=== PATIENT | female | born 1980 | race African-American/Black ===

== ENCOUNTER 2021-11-24 08:00 | Outpatient (CLI) | payer OTHER, SELFPAY ==
[2021-11-24 08:35] LABS: Anion Gap 6 mmol/L (8-16); Blood Urea Nitrogen 7 mg/dL (7-17); Calcium 8.3 mg/dL (8.4-10.2); Carbon Dioxide 25 mmol/L (22-30); Chloride 105 mmol/L (98-107); Estimated Glomerular Filt Rate > 60; Glucose 247 mg/dL (65-110); Potassium 3.6 mmol/L (3.4-5.0); Sodium 136 mmol/L (137-145)
== END 2021-11-24 08:01 | disposition home or self-care (01) ==
PROVIDERS: Anesthesiology; PCP Nurse Practitioner; Visit Provider Obstetrics & Gynecology
DX: E11.9 Type 2 diabetes mellitus without complications (principal); Z01.818 Encounter for other preprocedural examination
CPT/HCPCS: 36415; 80048

== ENCOUNTER 2021-11-30 01:46 | Day surgery (SDC) | payer OTHER, SELFPAY ==
[2021-11-23 13:35] VITALS: BMI 35.3
--- NOTE | 2021-11-23 14:08 | SUR.PREOP ---
Report to the Outpatient Waiting Room, entrance under the green pavilion located off [facility], at time 800 on date 11/30/21. OR Time: 1000. - You and your visitor will be asked a series of questions to screen for COVID 19 for your protection. - Only one visitor is allowed at this time. - The patient visitor is requested to leave or wait in car when not with patient. - A mask is required within the hospital. Patients may have clear liquids (water, carbonated beverages, clear teas, apple juice) until 3 hours prior to surgery with a maximum of 20 ounces. - No food from midnight until time of surgery - Infants may have breast milk until 4 hours before surgery, infant formula 6 hours prior to surgery. - Children will be allowed to drink immediately following surgery. If applicable, please bring a bottle or sippy cup to assist with drinking. Juice, water, soda, and popsicles are readily available. For infants on formula, please bring formula the day of surgery. Pacifiers are allowed. Take the following medications with a SIP of water the morning of surgery: GABAPENTIN Medications to discontinue per physician STOP ALL VITAMINES AND SUPPLIMENTS 3 DAYS PRIOR TO SURGERY. Date to take last dose 11/27/21. Please no make-up, nail cymro, hairspray, perfume, deodorant, or body powder the day of surgery. No jewelry (including any body piercings) or valuables the day of surgery, leave them at home. Please take a shower or bath the night before, or the morning of, surgery with an antibacterial soap. Wear comfortable, loose fitting clothing. Children are encouraged to wear pajamas. - Jewelry must be removed prior to entering the operating room. Rings and piercings that are not removed may be cut off. - The hospital will not accept responsibility for valuables. - Please leave all valuables, including medications, at home the day of surgery. If you are going home after surgery, a licensed truss driver helper must drive you home. - NO public transportation without another adult. - We recommend that an adult stay with you for 24 hours following discharge. - We also recommend that you do not drive, make important decision, drink alcoholic beverages, or take any drugs that were not prescribed by your health care provider for at least 24 hours after your discharge time. For Pediatric surgeries, we recommend two adults accompany the child home (only one inside the building at this time). Follow any additional instructions given to you from your surgeon. If you or anyone in your household have experienced Covid symptoms in the past week, please notify your surgeon or the nurse liaison at the phone number below for possible testing. Telephone instructions given to HELLEN MADDOX and asked if any additional questions and then verbalized understanding. Patient advised to call surgeon office or pre surgery nurse liaison [phone] if any additional questions.
--- NOTE | 2021-11-29 13:58 | PM.IMHP ---
H&P: HPI History of Present Illness Date/Time: 11/29/21 13:58 Chief Complaint: retained IUD Narrative: Trinh is a 41yo G0, who presented to clinic for Mirena IUD removal. She has missing strings, but US confirmed correct placement. She has decided she wants the IUD removed and she's wanting to have children. She does report HTN, DM and on multiple medications. In office attempt at removal was not tolerated by the patient due to cramping pains. She desires to proceed with HSC IUD removal. [facility] Past Medical History Medical History Diabetes Herpes Hyperlipidemia Hypertension Social History Social History Smoking status: Never smoker Spiritual care concerns: No Meds Home Medications and Allergies Home Medications Medication Instructions Recorded Confirmed Type acyclovir 400 mg tablet 400 mg PO DAILY 09/28/21 11/23/21 History atorvastatin 40 mg tablet 40 mg PO DAILY 09/28/21 11/23/21 History empagliflozin 25 mg tablet 25 mg PO DAILY 09/28/21 11/23/21 History (Jardiance) gabapentin 300 mg capsule 300 mg PO DAILY 09/28/21 11/23/21 History hydrochlorothiazide 25 mg tablet 25 mg PO DAILY 09/28/21 11/23/21 History insulin glargine 100 unit/mL (3 10 unit subcut QPM 09/28/21 11/23/21 History mL) subcutaneous pen (Basaglar KwikPen U-100 Insulin) lamotrigine 25 mg tablet 75 mg PO BID 09/28/21 11/23/21 History loratadine 10 mg tablet 10 mg PO DAILY 09/28/21 11/23/21 History metformin 500 mg tablet 500 mg PO DAILY 09/28/21 11/23/21 History mometasone-formoterol HFA 200 2 puff inhalation BID 09/28/21 11/23/21 History mcg-5 mcg/actuation aerosol inhaler (Dulera) insulin glargine 100 unit/mL (3 70 unit subcut DAILY 11/23/21 11/23/21 History mL) subcutaneous pen (Basaglar KwikPen U-100 Insulin) liraglutide 0.6 mg/0.1 mL (18 mg/3 0.6 mg subcut DAILY 11/23/21 11/23/21 History mL) subcutaneous pen injector (Victoza 2-Humberto) Allergies Allergy/AdvReac Type Severity Reaction Status Date / Time No Known Allergies Allergy Verified 11/23/21 13:39 Exam Const: General: cooperative, comfortable and no acute distress Nutritional Appearance: obese Orientation/consciousness: patient oriented x3 Resp: Effort & Inspection: normal respiratory effort Cardio: Rate: regular rate GI: Inspection: normal to inspection GI Palp: No abdominal tenderness and Yes Soft to palpation : Other: deferred to OR Skin: General skin exam: normal color Extrem: General: normal to inspection Psych: Appearance: grossly normal Affect: normal affect Attitude: cooperative Assessment and Plan Assessment and plan (1) IUD threads lost: Qualifiers: Encounter type: subsequent encounter Qualified Code(s): T83.32XD - Displacement of intrauterine contraceptive device, subsequent encounter Code(s): T83.32XA - Displacement of intrauterine contraceptive device, initial encounter Status: Acute (2) Retained intrauterine contraceptive device (IUD): Code(s): T83.39XA - Other mechanical complication of intrauterine contraceptive device, initial encounter Status: Acute Plan - pt unable to tolerate cramping associated with attempt at IUD removal in office when strings missing - needs HSC IUD removal in OR - Risks and benefits explained in detail
--- NOTE | 2021-11-30 07:05 | WPDHPUPDATE1 ---
History and Physical Update Update Date/Time: 11/30/21 07:05 History and Physical has been reviewed, including an updated exam of the patient. There are NO changes in the patient's condition. Risks, benefits, and alternatives have been discussed and questions answered. Patient agrees to proceed with procedure.
[2021-11-30 08:27] VITALS: BP 121/75; PULSE 79; RESP 20; TEMP 36.3; O2SAT 100
[2021-11-30] MEDS: ACETAMINOPHEN 500 MG TABLET 1000 MG PO (08:39)
[2021-11-30] MEDS: LACTATED RINGERS 1,000 ML 30 ML IV CONT (08:40)
[2021-11-30 08:48] LABS: Glucose Point of Care 156 mg/dl (65-105)
--- NOTE | 2021-11-30 08:54 | P.PNAN_ITS ---
Anes - Initial Pre Proc Eval Procedure: Operation Date: 11/30/21 10:00 Proposed Procedures p Hysteroscopy, Intra Uterine Device Removal - Jeanna Ingram MD Date/Time: 11/30/21 08:54 Surgeon: Jeanna Ingram MD Pre Op Diagnosis: retained IUD Patient Data Age: 41 Gender: F Height: 1.57 m Weight: 87.54 kg Allergies Allergy/AdvReac Type Severity Reaction Status Date / Time No Known Allergies Allergy Verified 11/30/21 08:29 Home Medications Medication Instructions Recorded Confirmed Type acyclovir 400 mg tablet 400 mg PO DAILY 09/28/21 11/30/21 History atorvastatin 40 mg tablet 40 mg PO DAILY 09/28/21 11/30/21 History empagliflozin 25 mg tablet 25 mg PO DAILY 09/28/21 11/30/21 History (Jardiance) gabapentin 300 mg capsule 300 mg PO DAILY 09/28/21 11/30/21 History hydrochlorothiazide 25 mg tablet 25 mg PO DAILY 09/28/21 11/30/21 History insulin glargine 100 unit/mL (3 10 unit subcut QPM 09/28/21 11/30/21 History mL) subcutaneous pen (Basaglar KwikPen U-100 Insulin) lamotrigine 25 mg tablet 75 mg PO BID 09/28/21 11/30/21 History loratadine 10 mg tablet 10 mg PO DAILY 09/28/21 11/30/21 History metformin 500 mg tablet 500 mg PO DAILY 09/28/21 11/30/21 History mometasone-formoterol HFA 200 2 puff inhalation BID 09/28/21 11/30/21 History mcg-5 mcg/actuation aerosol inhaler (Dulera) insulin glargine 100 unit/mL (3 70 unit subcut DAILY 11/23/21 11/30/21 History mL) subcutaneous pen (Basaglar KwikPen U-100 Insulin) liraglutide 0.6 mg/0.1 mL (18 mg/3 0.6 mg subcut DAILY 11/23/21 11/30/21 History mL) subcutaneous pen injector (Victoza 2-Humberto) Laboratory Tests 11/30/21 08:45 POC Capillary Glucose 156 mg/dl H mg/dl (65-105) Patient hx anesthesia problems: none Family hx anesthesia problems: none Results Review: All pre-operative results and documents have been reviewed as part of the pre- operative evaluation. [facility] Past Medical History Medical History Diabetes Herpes Hyperlipidemia Hypertension Social History Social History Smoking status: Never smoker Living arrangements: with family Spiritual care concerns: No Anes - Eval Final PreProcedure Day of Procedure 11/30/21 08:54 Patient weight: obese Heart: regular rate and rhythm Lungs: clear to auscultation Airway: Mallampati scale class II Neurological: alert and oriented Last oral intake: >/= 8 hours ASA classification: III Anesthesia type and monitoring: general GIVS and standard monitoring Results Review: All pre-operative results and documents have been reviewed as part of the pre- operative evaluation. Informed Consent: The patient's anesthetic plan and its attendant risks and benefits were discussed with the patient/family/POA. Questions were solicited and answers provided to the satisfaction of the patient/family/POA.
--- NOTE | 2021-11-30 09:28 | W.PM.PROC2 ---
Procedure Note - Detailed Date of Procedure 11/30/21 Pre-op Diagnosis retained IUD Post-op Diagnosis Same Procedure Performed Hysteroscopy, IUD removal Surgeon Jeanna Ingram MD Anesthesia MAC Indications Trinh is a 41yo G0, who attempted IUD removal in office; the IUD strings were missing. She was unable to tolerate the cramping pain therefore we proceeded with hysteroscopic IUD removal in the OR. Findings Uterus 7cm; IUD and strings within the uterine cavity; stenotic os. IUD removed in whole without issue. Good hemostasis at end of case. Description of Procedure Trinh was taken to the operating room where she was placed under sedation without complications. She was then prepped and draped in the usual sterile fashion in the dorsal lithotomy position with her legs in low Yunior stirrups. A time-out was performed and no preoperative antibiotics were indicated. A bivalve speculum was placed in the vagina where the cervix was easily identified and no IUD strings were noted. The anterior lip of the cervix was grasped with single-tooth tenaculum. The cervix was found to be stenotic but easily dilated. The hysteroscope was advanced into the uterine cavity where the IUD and strings were noted to be within the uterine cavity. The IUD was grasped with hysteroscopic alligator forceps however when trying to move the IUD, the grasp was weak and the IUD was accidentally released. Using polyp forceps, the IUD was grasped and removed in whole without complications. The hysteroscope was once again advanced into the uterine cavity where the bilateral tubal ostia were visualized as well as normal lining. All instruments were removed. Good hemostasis was noted. Sponge, lap, instrument, and needle counts were correct at the end the procedure. Patient was awoken from sedation and taken recovery in stable condition with plans of same day discharge home. Estimated Blood Loss 3 Pathology None sent Complications No immediate complications Condition Stable Disposition Same day [facility] Billing Surgery - Charge Forward: Surgery Billing
[2021-11-30 09:32] VITALS: BP 117/70; PULSE 90; RESP 14; O2SAT 100
[2021-11-30 09:44] LABS: Glucose Point of Care 136 mg/dl (65-105)
[2021-11-30] MEDS: fentaNYL CITRATE INJ (*CRX) 100 MCG/2 ML VIAL 25 MCG IV PUSH ×3 (09:54→10:23)
[2021-11-30 10:00] VITALS: BP 121/75; PULSE 81
[2021-11-30] MEDS: oxyCODONE HCL (*CRX) 5 MG TAB IR PO (10:03)
[2021-11-30 10:30] VITALS: BP 122/69; PULSE 79
[2021-11-30 10:45] VITALS: BP 113/75; PULSE 77
== END 2021-11-30 11:10 | disposition home or self-care (01) ==
PROVIDERS: PCP Nurse Practitioner; Visit Provider Obstetrics & Gynecology
PROC: 0U5B8ZZ Destruction of Endometrium, Via Natural or Artificial Opening Endoscopic (ICD-10-PCS; CPT 58563; principal; 2021-11-30 10:00)
DX: T83.32XA Displacement of intrauterine contraceptive device, initial encounter (principal); Y84.8 Other medical procedures as the cause of abnormal reaction of the patient, or of later complication, without mention of misadventure at the time of the procedure; E11.9 Type 2 diabetes mellitus without complications; I10 Essential (primary) hypertension; E78.5 Hyperlipidemia, unspecified; B00.9 Herpesviral infection, unspecified; Z79.84 Long term (current) use of oral hypoglycemic drugs; Z79.4 Long term (current) use of insulin; Z79.51 Long term (current) use of inhaled steroids; Z79.899 Other long term (current) drug therapy; E66.9 Obesity, unspecified; Z68.37 Body mass index [BMI] 37.0-37.9, adult
CPT/HCPCS: 58562; 82948; A9270; J2250; J2704; J3010; J7030; J7120

== ENCOUNTER 2022-09-14 15:26 | Outpatient (CLI) | payer OTHER, SELFPAY ==
[2022-09-14 17:21] LABS: Basophils Percent Auto 0.5 % (0.2-1.2); Eosinophils Absolute Auto 0.1 K/mm3 (0-0.3); Eosinophils Percent Auto 1.8 % (0-4.4); Hematocrit 40.1 % (37.0-47.0); Immature Granulocyte Absolute 0.01 K/mm3 (0.00-0.031); Immature Granulocyte Percent A 0.2 % (0-0.5); Lymphocytes Percent Auto 42.6 % (18.3-44.2); Mean Corpuscular HGB Conc 32.4 g/dl (32-36); Mean Corpuscular Hemoglobin 28.6 pg (26-34); Mean Corpuscular Volume 88.3 fl (80-100); Mean Platelet Volume 10.2 fl (7.4-10.4); Monocytes Absolute Auto 0.2 K/mm3 (0.1-0.6); Monocytes Percent Auto 4.3 % (2.6-8.5); Neutrophils Absolute Auto 2.9 K/mm3 (1.3-6.7); Neutrophils Percent Auto 50.6 % (45.5-73.1); Platelet Count Result 377 k/mm3 (150-375); Red Blood Count 4.54 M/mm3 (4.2-5.4); Red Cell Distribution Width 12.1 % (11.5-14.5); White Blood Count 5.6 K/mm3 (4.5-10.0)
[2022-09-14 17:37] LABS: Beta HCG Quantitative < 2.39 mIU/ML
[2022-09-17 06:33] LABS: FSH 5.1 mIU/mL (***); Progesterone <0.2 ng/mL (***); Prolactin 8.5 ng/mL (***)
[2022-09-19 16:06] LABS: Testosterone Free 6.3 pg/mL (0.1-6.4); Testosterone Total 21 ng/dL (2-45)
[2022-09-25 03:14] LABS: Estradiol, Ultrasensitive 78 pg/mL
== END 2022-09-14 15:27 | disposition home or self-care (01) ==
LOC: ANHLAB 15:28
PROVIDERS: PCP Nurse Practitioner; Visit Provider Obstetrics & Gynecology
DX: N93.9 Abnormal uterine and vaginal bleeding, unspecified (principal)
CPT/HCPCS: 36415; 82670; 83001; 84144; 84146; 84402; 84403; 84702; 85025

== ENCOUNTER 2022-10-18 14:36 | Outpatient (CLI) | payer OTHER, SELFPAY ==
[2022-10-18 15:38] LABS: Beta HCG Quantitative < 2.39 mIU/ML
== END 2022-10-18 14:37 | disposition home or self-care (01) ==
LOC: ANHLAB 14:37
PROVIDERS: PCP Nurse Practitioner; Visit Provider Obstetrics & Gynecology
DX: N93.9 Abnormal uterine and vaginal bleeding, unspecified (principal)
CPT/HCPCS: 36415; 84702

== ENCOUNTER 2023-01-19 15:00 | Outpatient (CLI) | payer OTHER, SELFPAY ==
--- NOTE | ~2023-01-19 | US_ITS ---
Pelvic ultrasound. Clinical History: Pelvic pain Technique: Realtime transabdominal and transvaginal scanning of the pelvis was performed. Color flow Doppler and Doppler spectral analysis were performed. Findings: The uterus is anteverted, and measures 7.1 x 3.3 x 3.8 cm. IUD in satisfactory position. Th e endometrial stripe has a thickness of 5 mm. No focal mass is identified. The right ovary measures 2.9 x 1.7 x 2.5 cm. No significant right ovarian or adnexal mass is seen. The left ovary measures 2.8 x 2.9 x 2.0 cm. No significant left ovarian or adnexal mass is seen. There is trace free fluid in the cul de sac. Impression: IUD in satisfactory position. Trace free fluid in the pelvis. Reviewed, dictated and finalized at [facility]. Impression: IUD in satisfactory position. Trace free fluid in the pelvis.
== END 2023-01-19 15:01 | disposition home or self-care (01) ==
LOC: ANHIMG 15:02
PROVIDERS: PCP Physician Assistant; Visit Provider Obstetrics & Gynecology
DX: R10.2 Pelvic and perineal pain (principal); Z97.5 Presence of (intrauterine) contraceptive device
CPT/HCPCS: 76830; 76856

== ENCOUNTER 2023-01-28 14:55 | Observation (INO) | payer OTHER, SELFPAY ==
--- NOTE | ~2023-01-28 | CT_ITS ---
EXAMINATION: CT soft tissue neck w con DATE: 01/28/2023 19:19 INDICATION: Spider bite right side of neck. Not responding to 4 oral antibiotics. TECHNIQUE: Computed tomography (CT) of the neck was performed with 75 mL Omnipaque-350 intravenous co ntrast. The dose-length product was 455.63 mGy-cm. Automated exposure control and iterative reconstru ction technique were employed. COMPARISON: None FINDINGS: There is focal skin thickening with underlying subcutaneous stranding extending deep to the sternocleidomastoid muscle, axial image 40. Findings likely correspond to known spider bite, consist ent with cellulitis. No discrete walled off fluid collection to suggest abscess. There are prominent right cervical chain lymph nodes and periparotid lymph nodes most likely reactive. There is effacemen t of the left lateral oropharynx. Recommend direct visualization to exclude underlying mass. There ar e degenerative changes of the spine. There are gland is unremarkable. Lung apices are normal. No sign ificant vascular abnormality. IMPRESSION: 1. Focal skin thickening with subcutaneous stranding right neck extending deep to the sternocleidomas toid muscle, consistent with cellulitis, presumably from prior spider bite. No evidence for abscess. 2: Mildly prominent right cervical lymph nodes, likely reactive. 3: Nonspecific effacement of the left lateral oropharynx. Recommend direct visualization to exclude underlying mass. Reviewed, dictated and finalized at location A. IMPRESSION: 1. Focal skin thickening with subcutaneous stranding right neck extending deep to the sternocleidomastoid muscle, consistent with cellulitis, presumably from prior spider bite. No evidence for abscess. 2: Mildly prominent right cervical lymph nodes, likely reactive. 3: Nonspecific effacement of the left lateral oropharynx. Recommend direct vis ualization to exclude underlying mass.
[2023-01-28 15:39] VITALS: BP 142/81; PULSE 111; RESP 16; TEMP 36.4
--- NOTE | 2023-01-28 17:57 | ED.SKABFB ---
HPI - Skin/Abscess/Foreign Bdy General Chief complaint: Skin/Abscess/Foreign Body <Eliana Perez PA-C - Last Filed: 01/29/23 03:55> Stated complaint: Spider bite <Eliana Perez PA-C - Last Filed: 01/29/23 03:55> Time Seen by Provider: 01/28/23 17:56 <TIAGO Valencia Last Filed: 01/29/23 03:55> Source: patient and old records reviewed <TIAGO Valencia Last Filed: 01/29/23 03:55> Mode of arrival: ambulatory <TIAGO Valencia Last Filed: 01/29/23 03:55> Limitations: no limitations <TIAGO Valencia Last Filed: 01/29/23 03:55> History of Present Illness HPI narrative: Patient is 42-year-old female, with PMH of insulin-dependent diabetes, who presents ED with report of an abscess to her right-sided neck. Patient reports she believes she was bit by a brown recluse spider last Tuesday as she woke up and noticed a spider on her pillow. She has since developed an abscessed region to her right-sided neck. She was seen in urgent care last Tuesday and prescribed Bactrim. She has been taking this as directed over the last 5 days, but reports worsening of the abscess. She states it has become increasingly tender. She feels as though it is causing her neck to become stiff and she is having a hard time turning her head to the right side. She has not noticed any drainage. Denies any fevers, nausea, vomiting. Denies difficulty swallowing or breathing. Patient states her sugars have been running around 120. <TIAGO Valencia Last Filed: 01/29/23 03:55> Related Data Home medications: Home Medications Medication Instructions Recorded Confirmed atorvastatin 40 mg tablet 20 mg PO QPM 09/28/21 01/29/23 empagliflozin 25 mg tablet 25 mg PO DAILY 09/28/21 01/29/23 (Jardiance) gabapentin 300 mg capsule 300 mg PO TID 09/28/21 01/29/23 metformin 500 mg tablet 500 mg PO QID 09/28/21 01/29/23 insulin glargine 100 unit/mL (3 80 unit subcut DAILY 11/23/21 01/29/23 mL) subcutaneous pen (Basaglar KwikPen U-100 Insulin) brimonidine 0.2 % eye drops 1 drp EACH EYE Q12H 01/29/23 01/29/23 buspirone 10 mg tablet 10 mg PO Q12H 01/29/23 01/29/23 dulaglutide 1.5 mg/0.5 mL 1.5 mg subcut WEEKLY 01/29/23 01/29/23 [facility] indomethacin 25 mg capsule 25 mg PO TID 01/29/23 01/29/23 losartan 50 mg tablet 50 mg PO DAILY 01/29/23 01/29/23 mometasone-formoterol HFA 200 200 puff inhalation TID 01/29/23 01/29/23 mcg-5 mcg/actuation aerosol inhaler (Dulera) montelukast 10 mg tablet 10 mg PO DAILY 01/29/23 01/29/23 omalizumab 150 mg/mL subcutaneous 150 mg subcut 2XW 01/29/23 01/29/23 syringe (Xolair) omalizumab 75 mg/0.5 mL 75 mg subcut 2XW 01/29/23 01/29/23 subcutaneous syringe (Xolair) omeprazole 20 mg capsule,delayed 20 mg PO DAILY 01/29/23 01/29/23 release oxcarbazepine 150 mg tablet 150 mg PO TID 01/29/23 01/29/23 timolol maleate 0.5 % eye drops 1 drp EACH EYE Q12H 01/29/23 01/29/23 tiotropium bromide 18 mcg capsule 18 mcg inhalation DAILY 01/29/23 01/29/23 with inhalation device (Spiriva with HandiHaler) <Eliana Perez PA-C - Last Filed: 01/29/23 03:55> Allergies/Adverse reactions: Allergies Allergy/AdvReac Type Severity Reaction Status Date / Time No Known Allergies Allergy Verified 12/16/22 15:04 <Eliana Perez PA-C - Last Filed: 01/29/23 03:55> Review of Systems Review of Systems: CONSTITUTIONAL: Denies fever, chills, or sweats. ENT: Denies rhinorrhea, congestion, sore throat. CARDIOVASCULAR: Denies chest pain. RESPIRATORY: Denies dyspnea. GASTROINTESTINAL: Denies abdominal pain, nausea, vomiting. SKIN: See HPI. MUSCULOSKELETAL: See HPI. NEUROLOGIC: Denies headache, numbness, or weakness. <Eliana Perez PA-C - Last Filed: 01/29/23 03:55> All systems reviewed & are unremarkable except as noted in HPI and below <Eliana Perez PA-C -
[2023-01-28 18:32] LABS: Basophils Percent Auto 0.4 % (0.2-1.2); Eosinophils Absolute Auto 0.1 K/mm3 (0-0.3); Eosinophils Percent Auto 1.4 % (0-4.4); Hematocrit 42.3 % (37.0-47.0); Hemoglobin 13.7 g/dL (12.0-15.0); Immature Granulocyte Absolute 0.03 K/mm3 (0.00-0.031); Immature Granulocyte Percent A 0.4 % (0-0.5); Lymphocytes Absolute Auto 2.98 K/mm3 (0.9-3.2); Lymphocytes Percent Auto 42.8 % (18.3-44.2); Mean Corpuscular HGB Conc 32.4 g/dl (32-36); Mean Corpuscular Hemoglobin 28.8 pg (26-34); Mean Corpuscular Volume 88.9 fl (80-100); Mean Platelet Volume 9.8 fl (7.4-10.4); Monocytes Absolute Auto 0.3 K/mm3 (0.1-0.6); Monocytes Percent Auto 4.9 % (2.6-8.5); Neutrophils Absolute Auto 3.5 K/mm3 (1.3-6.7); Neutrophils Percent Auto 50.1 % (45.5-73.1); Platelet Count Result 383 k/mm3 (150-375); Red Blood Count 4.76 M/mm3 (4.2-5.4); Red Cell Distribution Width 12.2 % (11.5-14.5)
[2023-01-28 18:46] LABS: Alanine Aminotransferase 16 U/L (6-35); Albumin Level 4.4 g/dL (3.5-5.1); Alkaline Phosphatase 80 U/L (38-126); Anion Gap 8 mmol/L (8-16); Aspartate Amino Transferase 25 U/L (14-36); Bilirubin,Total 0.9 mg/dL (0.2-1.3); Blood Urea Nitrogen 6 mg/dL (7-17); Calcium 9.3 mg/dL (8.4-10.2); Carbon Dioxide 26 mmol/L (22-30); Chloride 100 mmol/L (98-107); Estimated Glomerular Filt Rate > 60; Glucose 256 mg/dL (65-110); Potassium 3.8 mmol/L (3.4-5.0); Sodium 134 mmol/L (137-145)
[2023-01-28 18:47] LABS: Lactic Acid Reflex 1.3 mmol/L (0.7-2.0)
[2023-01-28 18:54] VITALS: BP 141/82; PULSE 83; RESP 14; O2SAT 100
[2023-01-28] MEDS: SODIUM CHLORIDE 0.9% IV 1,000 ML 999 ML IV CONT (18:54)
--- NOTE | 2023-01-28 19:23 | PC.NURSE ---
Patient care report given to MORRO Aguilera. All questions answered at this time.
[2023-01-28] MEDS: VANCOMYCIN 1,250 MG/NS 250 ML 1,250 MG/250 ML BAG 166.67 MG IVPB (22:17)
--- NOTE | 2023-01-28 23:24 | PM.IMHP ---
H&P: HPI History of Present Illness Date/Time: 01/28/23 23:24 Chief Complaint: Patient came to the ER for evaluation as her right-sided neck abscess is not healing Narrative: 42-year-old white female is here for evaluation who was bit by a brown recluse spider last Tuesday when she woke up and noticed a spider on her pillow. She has a history of insulin-dependent diabetes. She went to the urgent care and was given Bactrim which she has been using for the last 5 days, but the right-sided wound/ abscesses is worsening. She feels as though her neck is becoming stiff and she is having hard time turning her head to the right side. She came to the ER for evaluation. I&D was done by the ED provider and cultures were sent. Patient is being placed under observation for IV antibiotics and wound care. Review of Systems Review of Systems: she denies any chest pain palpitations fever rigor chills nausea vomiting dizziness or loss of consciousness All systems reviewed & are unremarkable except as noted in HPI and below PMFSH Past Medical History Medical History (Updated 01/29/23 @ 04:29 by Pardeep Nelson MD) Brown recluse spider bite Diabetes Encounter for insertion of mirena IUD 10/19/2022 Herpes Hyperlipidemia Hypertension Surgical History Surgical History History of gynecologic surgery hscope iud removal 11/30/2021 Social History Social History Smoking status: Never smoker Alcohol intake: never Substance use: never Substance use type: does not use Lack of Transportation: No Lack of Food: Never True Current Housing: I Have Housing Concerned About Future Housing: No Difficulty Paying Gas/Electric Bills: No Difficulty Paying for Meds: No Currently Unemployed: No Education: Trade/Vocational Certificate Difficulty w/ Childcare or Family Care: No Living arrangements: with family Occupation/Education: occupation Gender identity (if verbalized by the patient): Female Sexual Orientation (if Verbalized by the Patient): Straight or Heterosexual Spiritual care concerns: No Meds Home Medications and Allergies Home Medications Medication Instructions Recorded Confirmed Type atorvastatin 40 mg tablet 20 mg PO QPM 09/28/21 01/29/23 History empagliflozin 25 mg tablet 25 mg PO DAILY 09/28/21 01/29/23 History (Jardiance) gabapentin 300 mg capsule 300 mg PO TID 09/28/21 01/29/23 History metformin 500 mg tablet 500 mg PO QID 09/28/21 01/29/23 History insulin glargine 100 unit/mL (3 80 unit subcut DAILY 11/23/21 01/29/23 History mL) subcutaneous pen (Basaglar KwikPen U-100 Insulin) clobetasol 0.05 % topical cream 1 applic topical .see comment #[id number] 12/16/22 01/29/23 Rx grams brimonidine 0.2 % eye drops 1 drp EACH EYE TID 01/29/23 01/29/23 History buspirone 10 mg tablet 10 mg PO TID 01/29/23 01/29/23 History dulaglutide 1.5 mg/0.5 mL 1.5 mg subcut WEEKLY 01/29/23 01/29/23 History subcutaneous pen injector (Trulicity) indomethacin 25 mg capsule 25 mg PO TID 01/29/23 01/29/23 History losartan 50 mg tablet 50 mg PO DAILY 01/29/23 01/29/23 History mometasone-formoterol HFA 200 200 puff inhalation TID 01/29/23 01/29/23 History mcg-5 mcg/actuation aerosol inhaler (Dulera) montelukast 10 mg tablet 10 mg PO DAILY 01/29/23 01/29/23 History omalizumab 150 mg/mL subcutaneous 150 mg subcut 2XW 01/29/23 01/29/23 History syringe (Xolair) omalizumab 75 mg/0.5 mL 75 mg subcut 2XW 01/29/23 01/29/23 History subcutaneous syringe (Xolair) omeprazole 20 mg capsule,delayed 20 mg PO DAILY 01/29/23 01/29/23 History release oxcarbazepine 150 mg tablet 150 mg PO TID 01/29/23 01/29/23 History timolol maleate 0.5 % eye drops 1 drp EACH EYE TID 01/29/23 01/29/23 History tiotropium bromide 18 mcg capsule 18 mcg inhalation DAILY 01/29/23 01/29/23 History with inhalation device (Spiriva
[2023-01-28] MEDS: VANCOMYCIN 1,000 MG/NS 250 ML 1,000 MG/250 ML BAG 250 MG IVPB (23:46)
[2023-01-28] MEDS: LIDOCAINE HCL 1% LOCAL INJ 10 ML VIAL 5 ML INFILTRATE (23:54)
[2023-01-29 00:20] LABS: CRP 0.9 mg/dL (<1.0)
[2023-01-29 00:31] VITALS: BP 143/87; PULSE 83; RESP 15; O2SAT 99
[2023-01-29 00:41] LABS: Erythrocyte Sedimentation Rate 21 mm/hr (0-20)
[2023-01-29 01:00] VITALS: BP 126/77; PULSE 78; RESP 16; TEMP 36.9; O2SAT 100; BMI 38.0
[2023-01-29 01:04] VITALS: BMI 38.0
--- NOTE | 2023-01-29 02:00 | ADMGEN ---
This patient, Trinh Quijano, was admitted to [facility] Surg Room 306-02. Patient/family oriented to hospital policies and general routines including ID bracelet, bed and alarms, visiting hours, pain management, procedures, bathroom and other care routines, personal items, smoking policy, room service/diet, and visiting hours. Information on how to activate the Rapid Response Team has been discussed. Patient/Family are encouraged to report perceived risks to care and to ask questions if they do not understand what they are told or what they should do.
[2023-01-29 05:00] VITALS: BP 122/68; PULSE 96; RESP 20; TEMP 35.7; O2SAT 100
[2023-01-29 05:48] LABS: Estimated CRCL calculation 131 ml/min; Estimated Glomerular Filt Rate > 60
[2023-01-29 08:17] LABS: Glucose Point of Care 290 mg/dl (65-105)
[2023-01-29] MEDS: FLUTICASONE/SALMETEROL 230-21 MCG INHALER 1 PUFF 2 PUFF INHALATION ×2 (08:26→21:10)
[2023-01-29] MEDS: EMPAGLIFLOZIN 25 MG TABLET PO (09:13)
[2023-01-29] MEDS: MONTELUKAST SODIUM 10 MG TABLET PO (09:13)
[2023-01-29] MEDS: metFORMIN HCL 500 MG TABLET PO ×4 (09:13→20:51)
[2023-01-29] MEDS: PANTOPRAZOLE 40 MG TABLET PO (09:13)
[2023-01-29] MEDS: busPIRone HCL 10 MG TABLET PO ×2 (09:13→20:52)
[2023-01-29] MEDS: GABAPENTIN 300 MG CAPSULE PO ×3 (09:13→17:11)
[2023-01-29] MEDS: BRIMONIDINE TARTRATE 0.2% OP SOLN 5 ML BTL 1 DROP EACH EYE ×2 (09:14→20:52)
[2023-01-29] MEDS: INDOMETHACIN 25 MG CAPSULE PO ×3 (09:14→17:11)
[2023-01-29] MEDS: LOSARTAN POTASSIUM 50 MG TABLET PO (09:14)
[2023-01-29] MEDS: OXcarbazepine 150 MG TABLET PO ×3 (09:14→17:11)
[2023-01-29] MEDS: INSULIN GLARGINE (*BKC) 100 UNITS/ML 80 UNITS SUB-Q (09:14)
[2023-01-29] MEDS: TIMOLOL MALEATE 0.5% OP SOLN 5 ML BOTTLE 1 DROP EACH EYE ×2 (09:14→20:52)
[2023-01-29] MEDS: INSULIN ASPART (*BKC) 100 UNITS/ML SUB-Q ×2 (09:17→12:22)
[2023-01-29] MEDS: ACETAMINOPHEN 325 MG TABLET 650 MG PO (09:46)
[2023-01-29] MEDS: UMECLIDINIUM BROMIDE 62.5 MCG ELLIPTA 1 PUFF INHALATION (11:05)
--- NOTE | 2023-01-29 11:26 | PM.IMPN ---
Progress Note: A&P Assessment and Plan (1) Cellulitis and abscess of neck: Code(s): L03.221 - Cellulitis of neck; L02.11 - Cutaneous abscess of neck Status: Acute (2) Diabetes mellitus with hyperglycemia: Qualifiers: Diabetes mellitus halfway insulin use: without ferry terminal supervisor use Diabetes mellitus type: type 2 Qualified Code(s): E11.65 - Type 2 diabetes mellitus with hyperglycemia Code(s): E11.65 - Type 2 diabetes mellitus with hyperglycemia Status: Acute (3) Brown recluse spider bite: Code(s): T63.331A - Toxic effect of venom of brown recluse spider, accidental (unintentional), initial encounter Status: Acute Plan Place patient under observation in Med surge unit Patient has failed 5 days outpatient Bactrim therapy for right neck wound/abscess Patient underwent I&D by ER physician and sample sent for cultures CT scan neck was done with a preliminary review which ruled out any organized fluid collection Patient started on IV vancomycin in the ED which we will continue on the floor Pharmacy to dose vancomycin based on renal functions Patient is insulin-dependent diabetes mellitus with uncontrolled blood sugar levels Patient started on Accu-Cheks with Insulin coverage as per protocol Wound care consult ordered for medical management Continue with IV hydration on the floor DC planning home on oral antibiotics once blood sugar levels was controlled and after wound care ? Patient seen and examined at bedside ? Collaborated with patient's nurse at the bedside in detail and addressed all concerns ? Labs, electrolytes, radiology, investigations and test results reviewed ? ED/Consult/Nursing/Ancilliary notes on the chart reviewed and appreciated ? Spoke with patient/family at the bedside and answered all the questions that they had Continue with home meds. Monitor patient closely while admitted. Patient needs close follow up with PCP/specialists as an outpatient to address chronic medical issues. Repeat labs in a.m. Electrolyte replacement as per protocol. Patient will be monitored very closely on the floor. Further recommendations as per the hospital course. Patient's medical management will be taken over by our hospitalist team in a.m. Subjective Date/time seen: 01/29/23 11:26 Interval history: No complaints Exam Narrative: PHYSICAL EXAMINATION: Vital signs: Please see the chart General physical exam: patient lying in bed on the floor, feeling tired and sleepy Head/eyes: Atraumatic, EOMI, PERRLA ENT: Moist mucous membranes, nasal passages clear Neck: Supple, full range of motion, trachea midline CVS: S1 + S2, regular rate and rhythm, no murmurs Respiratory: Bilaterally fair air entry in both lung rawls, mild B/L crackles, symmetric chest expansion, no distress Abdomen: Soft, non-tender, bowel sounds +ve, no organomegaly Extremities: No clubbing, no cyanosis, no edema, no calf tenderness Musculoskeletal: Moves all, adequate range of motion, no muscle spasms Skin: Warm, dry, no jaundice, no cyanosis, + wound/abscess on the right side of the neck Neurological: sleepy, cranial nerves II-XII intact, no focal neurological deficits Psychiatric: Normal mood, non suicidal Objective Data Vital Signs Vital Signs: Vital Signs - 24 hr 01/28/23 15:39 01/28/23 18:54 01/29/23 00:31 Temperature 97.6 F Pulse Rate 111 H 83 83 Respiratory Rate 16 14 15 Blood Pressure 142/81 H 141/82 H 143/87 H Pulse Oximetry 100 99 Oxygen Delivery 01/29/23 01:00 01/29/23 05:00 01/29/23 06:19 Temperature 98.4 F 96.3 F L Pulse Rate 78 96 Respiratory Rate 16 20 Blood Pressure 126/77 122/68 Pulse Oximetry 100 100 Oxygen Delivery Room Air Intake/Output Intake/Output: Intake & Output 01/26/23 01/27/23 01/28/23 01/29/23 23:59 23:59 23:59 23:59 Intake Total 1250 620 Balance 1250 620 Meds/Results Medications: Active Medications Generic Name Dose Route Sta
[2023-01-29 12:00] VITALS: BP 138/83; PULSE 74; RESP 16; TEMP 36.4; O2SAT 100
[2023-01-29 12:02] LABS: Glucose Point of Care 233 mg/dl (65-105)
[2023-01-29] MEDS: HYDROcodone/acetaminophen (*CRX) 5-325 MG TABLET 1 TAB PO ×3 (12:20→22:42)
[2023-01-29 16:11] VITALS: BP 141/89; PULSE 80; RESP 16; TEMP 36.6; O2SAT 100
--- NOTE | 2023-01-29 16:45 | PM.CNGS ---
History of Present Illness Consult details Consult date: 01/29/23 Reason for consult: other (Spider bite right neck) Requesting physician: Adolfo Álvarez MD Narrative: Patient is a very nice 42-year-old woman who came to the emergency room yesterday evening with a painful right neck infection. This occurred on or around 01/18/2023. She woke up with a painful nodule on her right neck and saw a spider on her pillow. This got worse and she went to urgent care on 01/23 where she was given a script for Bactrim. This did not help and she was having a lot of discomfort and trouble rotating her neck. She came to the emergency room yesterday and was identified to have an abscess. This was incised and drained in the emergency room. Gram stain shows a few white cells and a few Gram-positive cocci. Cultures are pending. Patient feels this was a brown recluse spider bite. I was asked to see her in consultation regarding the spider bite on her neck. CT scan of the soft tissue of the neck was done yesterday and showed: IMPRESSION: 1. Focal skin thickening with subcutaneous stranding right neck extending deep to the sternocleidomastoid muscle, consistent with cellulitis, presumably from prior spider bite. No evidence for abscess. 2:? Mildly prominent right cervical lymph nodes, likely reactive. 3:? Nonspecific effacement of the left lateral oropharynx. Recommend direct visualization to exclude underlying mass. She reports that the bite is still painful and uncomfortable but probably not as bad as when she came to the emergency room. She does inquire as to when she would be able to be discharged. She is an insulin-dependent diabetic and blood sugars are somewhat elevated. Review of Systems Review of Systems: All systems reviewed & are unremarkable except as noted in HPI and below (HPI and those items noted below) Constitutional: Constitutional: Denies chills and Denies fever(s) Cardiovascular: Cardiovascular: Denies chest pain, Denies diaphoresis, Denies dyspnea and Denies paroxysmal nocturnal dyspnea Respiratory: Respiratory: Denies chest congestion, Denies cough and Denies dyspnea Integumentary/Breasts: Skin/Breast: Denies lesions and Denies rash PMFSH Past Medical History Medical History (Updated 01/29/23 @ 04:29 by Pardeep Nelson MD) Brown recluse spider bite Diabetes Encounter for insertion of mirena IUD 10/19/2022 Herpes Hyperlipidemia Hypertension Surgical History Surgical History History of gynecologic surgery hscope iud removal 11/30/2021 Social History Social History Smoking status: Never smoker Alcohol intake: never Substance use: never Substance use type: does not use Lack of Transportation: No Lack of Food: Never True Current Housing: I Have Housing Concerned About Future Housing: No Difficulty Paying Gas/Electric Bills: No Difficulty Paying for Meds: No Currently Unemployed: No Education: Trade/Vocational Certificate Difficulty w/ Childcare or Family Care: No Living arrangements: with family Occupation/Education: occupation Gender identity (if verbalized by the patient): Female Sexual Orientation (if Verbalized by the Patient): Straight or Heterosexual Spiritual care concerns: No Meds Home Medications and Allergies Home Medications Medication Instructions Recorded Confirmed Type atorvastatin 40 mg tablet 20 mg PO QPM 09/28/21 01/29/23 History empagliflozin 25 mg tablet 25 mg PO DAILY 09/28/21 01/29/23 History (Jardiance) gabapentin 300 mg capsule 300 mg PO TID 09/28/21 01/29/23 History metformin 500 mg tablet 500 mg PO QID 09/28/21 01/29/23 History insulin glargine 100 unit/mL (3 80 unit subcut DAILY 11/23/21 01/29/23 History mL) subcutaneous pen (Basaglar KwikPen U-100 Insulin) clobetasol 0.05 % topical cream 1 applic topical .see comment #[id number] 12/16/22 01/29/23
[2023-01-29 16:58] LABS: Glucose Point of Care 179 mg/dl (65-105)
[2023-01-29] MEDS: ATORVASTATIN 20 MG TABLET PO (17:15)
--- NOTE | 2023-01-29 17:26 | PM.CNGS ---
Assessment and Plan Assessment and plan (1) Brown recluse spider bite: Qualifiers: Encounter type: initial encounter Injury intent: accidental or unintentional Qualified Code(s): T63.331A - Toxic effect of venom of sara tatum spider, accidental (unintentional), initial encounter Code(s): T63.331A - Toxic effect of venom of sara tatum spider, accidental (unintentional), initial encounter Status: Acute Assessment and Plan: There does not appear to be any residual abscess associated with the spider bite. Patient is on broad-spectrum antibiotics. I would continue to watch her overnight but assuming it is not worse or even better tomorrow, I would probably discharge her on Augmentin. I can follow her up in the office and further manage the spider bite. It is unusual to require any additional procedures for this. I explained to the patient had mostly the pain and swelling is due to the toxin not really a bacterial infection or cellulitis. Thank you for asking me to see her in consultation. I will recheck her again tomorrow but hopefully she can be discharged unless her blood sugars need further management. (2) Diabetes mellitus with hyperglycemia: Qualifiers: Diabetes mellitus long-term insulin use: without long-term use Diabetes mellitus type: type 2 Qualified Code(s): E11.65 - Type 2 diabetes mellitus with hyperglycemia Code(s): E11.65 - Type 2 diabetes mellitus with hyperglycemia Status: Acute Assessment and Plan: Management per hospitalist. History of Present Illness Consult details Consult date: 01/29/23 Reason for consult: other (Spider bite to the neck) Requesting physician: Adolfo Álvarez MD Narrative: Patient is a very nice 42-year-old woman who came to the emergency room yesterday evening with a painful right neck infection.? This occurred on or around 01/18/2023.? She woke up with a painful nodule on her right neck and saw a spider on her pillow.? This got worse and she went to urgent care on 01/23 where she was given a script for Bactrim.? This did not help and she was having a lot of discomfort and trouble rotating her neck.? She came to the emergency room yesterday and was identified to have an abscess.? This was incised and drained in the emergency room.? Gram stain shows a few white cells and a few Gram-positive cocci.? Cultures are pending.? Patient feels this was a brown recluse spider bite.? I was asked to see her in consultation regarding the spider bite on her neck.? CT scan of the soft tissue of the neck was done yesterday and showed: IMPRESSION: 1. Focal skin thickening with subcutaneous stranding right neck extending deep to the sternocleidomastoid muscle, consistent with cellulitis, presumably from prior spider bite. No evidence for abscess. 2:? Mildly prominent right cervical lymph nodes, likely reactive. 3:? Nonspecific effacement of the left lateral oropharynx. Recommend direct visualization to exclude underlying mass. She reports that the bite is still painful and uncomfortable but probably not as bad as when she came to the emergency room.? She does inquire as to when she would be able to be discharged.? She is an insulin-dependent diabetic and blood sugars are somewhat elevated. Review of Systems Review of Systems: All systems reviewed & are unremarkable except as noted in HPI and below (HPI and those items noted below) Constitutional: Constitutional: Denies chills and Denies fever(s) Cardiovascular: Cardiovascular: Denies chest pain, Denies diaphoresis, Denies dyspnea and Denies paroxysmal nocturnal dyspnea Respiratory: Respiratory: Denies chest congestion, Denies cough and Denies dyspnea Integumentary/Breasts: Skin/Breast: Denies lesions and Denies rash PMFSH Past Medical History Medical History Brown recluse spider bite Diabetes Encounter for insertion of mirena IUD 10/19/2022 Herpes
[2023-01-29 20:57] LABS: Glucose Point of Care 191 mg/dl (65-105)
[2023-01-29 21:52] VITALS: BP 145/95; PULSE 86; RESP 16; TEMP 36.5; O2SAT 100
[2023-01-30 05:04] VITALS: BP 122/73; PULSE 83; RESP 18; TEMP 36.6; O2SAT 100
[2023-01-30 07:39] LABS: Glucose Point of Care 181 mg/dl (65-105)
[2023-01-30] MEDS: FLUTICASONE/SALMETEROL 230-21 MCG INHALER 1 PUFF 2 PUFF INHALATION ×2 (07:47→20:18)
[2023-01-30 07:50] VITALS: PULSE 83
[2023-01-30] MEDS: INSULIN GLARGINE (*BKC) 100 UNITS/ML 80 UNITS SUB-Q (09:01)
[2023-01-30 09:02] LABS: Basophils Percent Auto 0.2 % (0.2-1.2); Eosinophils Absolute Auto 0.1 K/mm3 (0-0.3); Eosinophils Percent Auto 1.8 % (0-4.4); Hematocrit 37.2 % (37.0-47.0); Hemoglobin 12.2 g/dL (12.0-15.0); Immature Granulocyte Absolute 0.02 K/mm3 (0.00-0.031); Immature Granulocyte Percent A 0.3 % (0-0.5); Lymphocytes Percent Auto 40.6 % (18.3-44.2); Mean Corpuscular HGB Conc 32.8 g/dl (32-36); Mean Corpuscular Volume 88.4 fl (80-100); Mean Platelet Volume 9.5 fl (7.4-10.4); Monocytes Absolute Auto 0.3 K/mm3 (0.1-0.6); Monocytes Percent Auto 5.4 % (2.6-8.5); Neutrophils Absolute Auto 3.2 K/mm3 (1.3-6.7); Neutrophils Percent Auto 51.7 % (45.5-73.1); Platelet Count Result 334 k/mm3 (150-375); Red Blood Count 4.21 M/mm3 (4.2-5.4); White Blood Count 6.2 K/mm3 (4.5-10.0)
[2023-01-30] MEDS: BRIMONIDINE TARTRATE 0.2% OP SOLN 5 ML BTL 1 DROP EACH EYE ×2 (09:05→21:01)
[2023-01-30] MEDS: TIMOLOL MALEATE 0.5% OP SOLN 5 ML BOTTLE 1 DROP EACH EYE ×2 (09:05→21:01)
[2023-01-30] MEDS: MONTELUKAST SODIUM 10 MG TABLET PO (09:05)
[2023-01-30] MEDS: OXcarbazepine 150 MG TABLET PO ×3 (09:06→16:52)
[2023-01-30] MEDS: busPIRone HCL 10 MG TABLET PO ×2 (09:06→21:03)
[2023-01-30] MEDS: INDOMETHACIN 25 MG CAPSULE PO ×3 (09:06→16:52)
[2023-01-30] MEDS: PANTOPRAZOLE 40 MG TABLET PO (09:06)
[2023-01-30] MEDS: LOSARTAN POTASSIUM 50 MG TABLET PO (09:06)
[2023-01-30] MEDS: metFORMIN HCL 500 MG TABLET PO ×4 (09:06→21:03)
[2023-01-30] MEDS: EMPAGLIFLOZIN 25 MG TABLET PO (09:06)
[2023-01-30] MEDS: GABAPENTIN 300 MG CAPSULE PO ×3 (09:06→16:52)
[2023-01-30 09:15] LABS: Anion Gap 9 mmol/L (8-16); Blood Urea Nitrogen 7 mg/dL (7-17); Calcium 8.9 mg/dL (8.4-10.2); Carbon Dioxide 24 mmol/L (22-30); Chloride 103 mmol/L (98-107); Estimated CRCL calculation 97 ml/min; Estimated Glomerular Filt Rate > 60; Glucose 181 mg/dL (65-110); Magnesium 1.8 mg/dL (1.6-2.3); Phosphorus 6.2 mg/dL (2.5-4.5); Potassium 3.7 mmol/L (3.4-5.0); Sodium 136 mmol/L (137-145)
[2023-01-30] MEDS: HYDROcodone/acetaminophen (*CRX) 5-325 MG TABLET 1 TAB PO (09:16)
--- NOTE | 2023-01-30 11:32 | PM.PNGS ---
Progress Note: A&P Assessment and Plan (1) Brown recluse spider bite: Qualifiers: Encounter type: initial encounter Injury intent: accidental or unintentional Qualified Code(s): T63.331A - Toxic effect of venom of sara tatum spider, accidental (unintentional), initial encounter Code(s): T63.331A - Toxic effect of venom of sara tatum spider, accidental (unintentional), initial encounter Status: Acute Assessment and Plan: Improving. No evidence of systemic toxicity. Patient can go home from my perspective on oral antibiotics. She should keep a Band-Aid over the wound but wash wound in the shower with soap daily or nearly every day. I can see her in the office in about 8 days. (2) Cellulitis and abscess of neck: Code(s): L03.221 - Cellulitis of neck; L02.11 - Cutaneous abscess of neck Status: Acute Assessment and Plan: Improving. Cultures growing staph. Will continue to drain but clearly improving. Okay to discharge on oral antibiotics when hospitalist is comfortable with this. Subjective Subjective Date/Time Seen: 01/30/23 11:32 Patient reports: still having pain (Area of the bite seems to her little more today.) and afebrile Review of Systems Review of Systems: All systems reviewed & are unremarkable except as noted in HPI and below (HPI and those items noted below) Constitutional: Constitutional: Denies chills and Denies fever(s) Cardiovascular: Cardiovascular: Denies chest pain, Denies diaphoresis, Denies dyspnea and Denies paroxysmal nocturnal dyspnea Respiratory: Respiratory: Denies chest congestion, Denies cough and Denies dyspnea Integumentary/Breasts: Skin/Breast: Denies lesions and Denies rash Exam Const: General: comfortable and no acute distress Orientation/consciousness: patient oriented x3 Neck: Neck: supple, no lymphadenopathy noted and other (Bite wound smaller, apical ulcer larger, no purulence, dandy tender) Other: No fluctuance right neck insect bite, definitely smaller than it was yesterday. Neuro: General: patient oriented x3 and no focal motor deficits Extrem: General: no calf tenderness and no edema Psych: Affect: normal affect Insight: Good insight present (Psych) Judgement: Good judgement present (Psych) Objective Data Vital Signs Vital Signs: Vital Signs - 24 hr 01/29/23 12:00 01/29/23 16:11 01/29/23 21:52 Temperature 36.4 C 36.6 C 36.5 C Pulse Rate 74 80 86 Respiratory Rate 16 16 16 Blood Pressure 138/83 141/89 H 145/95 H Pulse Oximetry 100 100 100 Oxygen Delivery 01/29/23 20:30 01/30/23 05:04 01/30/23 07:50 Temperature 36.6 C Pulse Rate 83 83 Respiratory Rate 18 Blood Pressure 122/73 Pulse Oximetry 100 Oxygen Delivery Room Air Intake/Output Intake/Output: Intake & Output 01/27/23 01/28/23 01/29/23 01/30/23 23:59 23:59 23:59 23:59 Intake Total 1250 1600 1420 Balance 1250 1600 1420 Meds/Results Medications: Active Medications Generic Name Dose Route Start Last Admin Trade Name Freq PRN Reason Stop Dose Admin Acetaminophen 650 mg 01/28/23 23:26 01/29/23 09:46 Acetaminophen 325 Mg Tablet PO 650 mg Q4H PRN Administration Mild Pain (1-3) or Fever Hydrocodone Bitart/Acetaminophen 1 tab 01/29/23 17:10 01/30/23 09:16 Hydrocodone/Acetaminophen (*Crx) 5-325 Mg Tablet PO 1 tab Q4-6H PRN Administration Pain Rated 7-10 Al Hydrox/Mg Hydrox/Simethicone 30 ml 01/29/23 04:38 Mag Hydrox/Al Hydrox/Simeth 30 Ml Udc PO QID PRN Dyspepsia Atorvastatin Calcium 20 mg 01/29/23 18:00 01/29/23 17:15 Atorvastatin 20 Mg Tablet PO 20 mg QPM FILI Administration Brimonidine Tartrate 1 drop 01/29/23 21:00 01/30/23 09:05 Brimonidine Tartrate 0.2% Op Soln 5 Ml Btl EACH EYE 1 drop Q12HR FILI Administration Buspirone HCl 10 mg 01/29/23 21:00 01/30/23 09:06 Buspirone Hcl 10 Mg Tablet PO 10 mg Q12HR FILI Administration D
--- NOTE | 2023-01-30 11:44 | PM.IMPN ---
Progress Note: A&P Assessment and Plan (1) Cellulitis and abscess of neck: Code(s): L03.221 - Cellulitis of neck; L02.11 - Cutaneous abscess of neck Status: Acute (2) Diabetes mellitus with hyperglycemia: Qualifiers: Diabetes mellitus residential insulin use: without bed bug exterminator use Diabetes mellitus type: type 2 Qualified Code(s): E11.65 - Type 2 diabetes mellitus with hyperglycemia Code(s): E11.65 - Type 2 diabetes mellitus with hyperglycemia Status: Acute (3) Brown recluse spider bite: Qualifiers: Encounter type: initial encounter Injury intent: accidental or unintentional Qualified Code(s): T63.331A - Toxic effect of venom of brown recluse spider, accidental (unintentional), initial encounter Code(s): T63.331A - Toxic effect of venom of brown recluse spider, accidental (unintentional), initial encounter Status: Acute Plan Place patient under observation in Med surge unit Patient has failed 5 days outpatient Bactrim therapy for right neck wound/abscess Patient underwent I&D by ER physician and sample sent for cultures CT scan neck was done with a preliminary review which ruled out any organized fluid collection Patient started on IV vancomycin in the ED which we will continue on the floor Pharmacy to dose vancomycin based on renal functions Patient is insulin-dependent diabetes mellitus with uncontrolled blood sugar levels Patient started on Accu-Cheks with Insulin coverage as per protocol Wound care consult ordered for medical management Continue with IV hydration on the floor DC planning home on oral antibiotics once blood sugar levels was controlled and after wound care ? Patient seen and examined at bedside ? Collaborated with patient's nurse at the bedside in detail and addressed all concerns ? Labs, electrolytes, radiology, investigations and test results reviewed ? ED/Consult/Nursing/Ancilliary notes on the chart reviewed and appreciated ? Spoke with patient/family at the bedside and answered all the questions that they had Continue with home meds. Monitor patient closely while admitted. Patient needs close follow up with PCP/specialists as an outpatient to address chronic medical issues. Repeat labs in a.m. Electrolyte replacement as per protocol. Patient will be monitored very closely on the floor. Further recommendations as per the hospital course. Patient's medical management will be taken over by our hospitalist team in a.m. Subjective Date/time seen: 01/30/23 11:44 Interval history: feeling better Exam Narrative: PHYSICAL EXAMINATION: Vital signs: Please see the chart General physical exam: patient lying in bed on the floor, feeling tired and sleepy Head/eyes: Atraumatic, EOMI, PERRLA ENT: Moist mucous membranes, nasal passages clear Neck: Supple, full range of motion, trachea midline CVS: S1 + S2, regular rate and rhythm, no murmurs Respiratory: Bilaterally fair air entry in both lung rawls, mild B/L crackles, symmetric chest expansion, no distress Abdomen: Soft, non-tender, bowel sounds +ve, no organomegaly Extremities: No clubbing, no cyanosis, no edema, no calf tenderness Musculoskeletal: Moves all, adequate range of motion, no muscle spasms Skin: Warm, dry, no jaundice, no cyanosis, + wound/abscess on the right side of the neck Neurological: sleepy, cranial nerves II-XII intact, no focal neurological deficits Psychiatric: Normal mood, non suicidal Objective Data Vital Signs Vital Signs: Vital Signs - 24 hr 01/29/23 12:00 01/29/23 16:11 01/29/23 21:52 Temperature 97.6 F 98 F 97.7 F Pulse Rate 74 80 86 Respiratory Rate 16 16 16 Blood Pressure 138/83 141/89 H 145/95 H Pulse Oximetry 100 100 100 Oxygen Delivery 01/29/23 20:30 01/30/23 05:04 01/30/23 07:50 Temperature 97.9 F Pulse Rate 83 83 Respiratory Rate 18 Blood Pressure 122/73 Pulse Oximetry 100 Oxygen Delivery Room Air Intake/Output Intake
[2023-01-30] MEDS: INSULIN ASPART (*BKC) 100 UNITS/ML SUB-Q (12:02)
[2023-01-30] MEDS: ONDANSETRON INJ 4 MG/2 ML VIAL IV PUSH ×2 (12:21→17:56)
[2023-01-30 14:00] VITALS: BP 141/92; PULSE 88; RESP 14; TEMP 36.6; O2SAT 100
[2023-01-30 15:32] LABS: Glucose Point of Care 260 mg/dl (65-105)
[2023-01-30 17:01] LABS: Glucose Point of Care 161 mg/dl (65-105)
[2023-01-30] MEDS: ATORVASTATIN 20 MG TABLET PO (17:21)
[2023-01-30 20:19] VITALS: PULSE 80
[2023-01-30 20:47] VITALS: BP 124/65; PULSE 81; RESP 16; TEMP 36.3; O2SAT 100
[2023-01-30 21:12] LABS: Glucose Point of Care 194 mg/dl (65-105)
[2023-01-31 05:02] VITALS: BP 143/65; PULSE 95; RESP 16; TEMP 36.2; O2SAT 100
[2023-01-31 07:39] LABS: Glucose Point of Care 114 mg/dl (65-105)
[2023-01-31 07:40] VITALS: PULSE 83
[2023-01-31] MEDS: FLUTICASONE/SALMETEROL 230-21 MCG INHALER 1 PUFF 2 PUFF INHALATION (07:40)
[2023-01-31] MEDS: UMECLIDINIUM BROMIDE 62.5 MCG ELLIPTA 1 PUFF INHALATION (07:40)
--- NOTE | 2023-01-31 07:47 | PCWOUND ---
Received consult over the weekend to assess spider bite on patient's neck. Consult was also placed for general surgery to see patient for same wound. Dr. Etienne has been following patient, orders have placed for care. Wound care will not see patient at this time.
[2023-01-31] MEDS: busPIRone HCL 10 MG TABLET PO (08:42)
[2023-01-31] MEDS: LOSARTAN POTASSIUM 50 MG TABLET PO (08:42)
[2023-01-31] MEDS: INDOMETHACIN 25 MG CAPSULE PO ×2 (08:43→11:47)
[2023-01-31] MEDS: MONTELUKAST SODIUM 10 MG TABLET PO (08:43)
[2023-01-31] MEDS: PANTOPRAZOLE 40 MG TABLET PO (08:43)
[2023-01-31] MEDS: GABAPENTIN 300 MG CAPSULE PO ×2 (08:43→12:14)
[2023-01-31] MEDS: OXcarbazepine 150 MG TABLET PO ×2 (08:43→12:14)
[2023-01-31] MEDS: EMPAGLIFLOZIN 25 MG TABLET PO (08:43)
[2023-01-31] MEDS: metFORMIN HCL 500 MG TABLET PO ×2 (08:43→11:45)
[2023-01-31] MEDS: ACETAMINOPHEN 325 MG TABLET 650 MG PO (08:53)
[2023-01-31] MEDS: INSULIN GLARGINE (*BKC) 100 UNITS/ML 80 UNITS SUB-Q (08:56)
[2023-01-31 08:58] LABS: Estimated CRCL calculation 97 ml/min; Estimated Glomerular Filt Rate > 60
[2023-01-31] MEDS: BRIMONIDINE TARTRATE 0.2% OP SOLN 5 ML BTL 1 DROP EACH EYE (08:58)
[2023-01-31] MEDS: TIMOLOL MALEATE 0.5% OP SOLN 5 ML BOTTLE 1 DROP EACH EYE (08:58)
[2023-01-31 11:24] LABS: Glucose Point of Care 166 mg/dl (65-105)
--- NOTE | 2023-01-31 11:37 | PM.DS ---
DS: Admitting Diagnosis Discharge Date January 31, 2023 Admitting Diagnosis Spider bite, face. Abscess, drainage in the ER DS: Discharge Diagnosis Discharge Diagnosis (1) Cellulitis and abscess of neck: Code(s): L03.221 - Cellulitis of neck; L02.11 - Cutaneous abscess of neck Status: Acute (2) Diabetes mellitus with hyperglycemia: Qualifiers: Diabetes mellitus terminal gauger insulin use: without assisted use Diabetes mellitus type: type 2 Qualified Code(s): E11.65 - Type 2 diabetes mellitus with hyperglycemia Code(s): E11.65 - Type 2 diabetes mellitus with hyperglycemia Status: Acute (3) Brown recluse spider bite: Qualifiers: Encounter type: initial encounter Injury intent: accidental or unintentional Qualified Code(s): T63.331A - Toxic effect of venom of brown recluse spider, accidental (unintentional), initial encounter Code(s): T63.331A - Toxic effect of venom of brown recluse spider, accidental (unintentional), initial encounter Status: Acute Plan Place patient under observation in Med surge unit Patient has failed 5 days outpatient Bactrim therapy for right neck wound/abscess Patient underwent I&D by ER physician and sample sent for cultures CT scan neck was done with a preliminary review which ruled out any organized fluid collection Patient started on IV vancomycin in the ED which we will continue on the floor Pharmacy to dose vancomycin based on renal functions Patient is insulin-dependent diabetes mellitus with uncontrolled blood sugar levels Patient started on Accu-Cheks with Insulin coverage as per protocol Wound care consult ordered for medical management Continue with IV hydration on the floor DC planning home on oral antibiotics once blood sugar levels was controlled and after wound care ? Patient seen and examined at bedside ? Collaborated with patient's nurse at the bedside in detail and addressed all concerns ? Labs, electrolytes, radiology, investigations and test results reviewed ? ED/Consult/Nursing/Ancilliary notes on the chart reviewed and appreciated ? Spoke with patient/family at the bedside and answered all the questions that they had Continue with home meds. Monitor patient closely while admitted. Patient needs close follow up with PCP/specialists as an outpatient to address chronic medical issues. Repeat labs in a.m. Electrolyte replacement as per protocol. Patient will be monitored very closely on the floor. Further recommendations as per the hospital course. Patient's medical management will be taken over by our hospitalist team in a.m. DS: Summary Hospital Course Hospital Course: Admitted for spider bite that got infected. Abscess was drained in ER. Cultures grew MRSA, Bactrim on discharge. Follow-up with surgery Time Spent with Patient Time attestation: Total time spent providing and/or coordinating discharge services: Exam Narrative: PHYSICAL EXAMINATION: Vital signs: Please see the chart General physical exam: patient lying in bed on the floor, feeling tired and sleepy Head/eyes: Atraumatic, EOMI, PERRLA ENT: Moist mucous membranes, nasal passages clear Neck: Supple, full range of motion, trachea midline CVS: S1 + S2, regular rate and rhythm, no murmurs Respiratory: Bilaterally fair air entry in both lung rawls, mild B/L crackles, symmetric chest expansion, no distress Abdomen: Soft, non-tender, bowel sounds +ve, no organomegaly Extremities: No clubbing, no cyanosis, no edema, no calf tenderness Musculoskeletal: Moves all, adequate range of motion, no muscle spasms Skin: Warm, dry, no jaundice, no cyanosis, + wound/abscess on the right side of the neck Neurological: sleepy, cranial nerves II-XII intact, no focal neurological deficits Psychiatric: Normal mood, non suicidal DS: Data Data Completed and Pending Labs on day of discharge: Labs from last 24 hours 01/31/23 01/31/23 01/31/23 11:17 08:36 07:37 C
== END 2023-01-31 12:40 | disposition home or self-care (01) ==
LOC: ANHED 22:23 → ANH3MEDSUR 01-29 00:33
PROVIDERS: Admitting Provider Family Medicine; Emergency Provider Physician Assistant; PCP Physician Assistant; Visit Provider Family Medicine
DX: L03.221 Cellulitis of neck (principal); L02.11 Cutaneous abscess of neck; T63.331A Toxic effect of venom of brown recluse spider, accidental (unintentional), initial encounter; E11.65 Type 2 diabetes mellitus with hyperglycemia; I10 Essential (primary) hypertension; E78.5 Hyperlipidemia, unspecified; Z79.84 Long term (current) use of oral hypoglycemic drugs; Z79.51 Long term (current) use of inhaled steroids; Z79.4 Long term (current) use of insulin; Z23 Encounter for immunization
CPT/HCPCS: 10060; 36415; 70491; 80048; 80053; 82565; 82948; 83605; 83735; 84100; 85025; 85652; 86140; 87070; 87147; 87186; 87205; 90471; 90686; 94640; 96361; 96365; 96366; 96375; 96376; 99285; A9270; G0008; G0378; G0379; J1815; J2405; J3370; J7030; Q9967

== ENCOUNTER 2023-04-06 12:14 | Outpatient (CLI) | payer OTHER, SELFPAY ==
--- NOTE | ~2023-04-06 | MMUS_ITS ---
EXAMINATION: MM diagnostic alix BI w steve, US breast BI complete HISTORY: Upper inner quadrant left breast lumps TECHNIQUE: Bilateral full field and left spot 3-D tomosynthesis images were performed and synthetic 2 -D images were generated. CAD analysis was submitted and interpreted. High resolution complete bilate ral breast ultrasound examination could L4 quadrants and subareolar areas was performed. COMPARISON: None BREAST PARENCHYMAL COMPOSITION: The breasts are heterogeneously dense, which may obscure small masses . FINDINGS: MAMMOGRAPHIC FINDINGS: No suspicious mass or architectural distortion, malignant calcification, skin thickening or retractio n is detected. ULTRASOUND: No suspicious mass or shadowing, cyst or other significant sonographic abnormality of either breast i s detected. IMPRESSION: 1. No mammographic or sonographic evidence of malignancy 2. Routine annual mammographic screening is recommended BI-RADS Category 1: Negative Reviewed, dictated and finalized at location A. OF ALL TRADES IMPRESSION: 1. No mammographic or sonographic evidence of malignancy 2. Routine annual mammographic screening is recommended BI-RADS Category 1: Negative
== END 2023-04-06 12:15 | disposition home or self-care (01) ==
LOC: ANHIMG 12:18
PROVIDERS: PCP Physician Assistant; Visit Provider Obstetrics & Gynecology
DX: N63.22 Unspecified lump in the left breast, upper inner quadrant (principal)
CPT/HCPCS: 76641; 77062; 77066; G0279